=== PATIENT | male | born 1995 | race African-American/Black ===

== ENCOUNTER 2021-10-07 08:46 | Emergency (ER) | payer OTHER ==
[~2021-10-07] VITALS: Ht 198.1 cm; Wt 133.8 kg
[2021-10-07] MEDS ORDERED: TOPROL XL25 M1 PO (08:58)
== END 2021-10-07 11:47 | disposition home or self-care (01) ==
LOC: ER 08:46
DX: I48.91 Unspecified atrial fibrillation (principal); Z20.822 Contact with and (suspected) exposure to COVID-19